=== PATIENT | male | born 1955 | race Caucasian/White ===

== ENCOUNTER 2019-12-06 12:21 | Day surgery (SDC) | payer BC ==
[~2019-12-06] VITALS: Ht 180.3 cm; Wt 84.5 kg
[2019-12-06 12:35] VITALS: BP 160/93
[2019-12-06] MEDS ORDERED: LIDOcaine Viscous 15ml cup ONE (12:37)
[2019-12-06] MEDS ORDERED: fentaNYL/PF 50MCG/1 ML 2ML syringe ONE (12:37)
[2019-12-06] MEDS ORDERED: MIDAZolam 5mg/5ml vial ONE (12:37)
[2019-12-06] MEDS ORDERED: LISI-600 PO (12:49)
[2019-12-06] MEDS ORDERED: ASPI-611 PO (12:50)
[2019-12-06 13:10] VITALS: BP 136/88
[2019-12-06 13:20] VITALS: BP 138/86
[2019-12-06 13:40] VITALS: BP 147/86
[2019-12-06 13:50] VITALS: BP 130/88
== END 2019-12-06 14:08 | disposition home or self-care (01) ==
LOC: GI LAB 12:21
PROVIDERS: ATTEND Internal Medicine Gastroenterology
DX: R13.14 Dysphagia, pharyngoesophageal phase (principal); K22.2 Esophageal obstruction; K29.50 Unspecified chronic gastritis without bleeding
CPT/HCPCS: 43239; 43248; 99152; J2250; J3010; J7040; 43250; 43453; 99153; A4620